=== PATIENT | male | born 1980 | race Caucasian/White ===

== ENCOUNTER 2025-02-10 13:00 | Emergency (ER) | payer OTHER, SELFPAY ==
[2025-02-10 13:10] VITALS: BP 160/90; PULSE 71; RESP 18; TEMP 36.6; O2SAT 98
[2025-02-10 13:57] VITALS: BP 149/93; PULSE 54; RESP 14; TEMP 36.6; O2SAT 99
[2025-02-10 14:06] LABS: Bilirubin Negative (Negative); Blood Negative (Negative); Clarity Clear (Clear); Glucose Negative (Negative); Ketones Negative (Negative); Leukocyte Esterase Negative (Negative); Nitrite Negative (Negative); pH 6.5 (5-8)
--- NOTE | 2025-02-10 14:17 | ED.GENADUL_ITS ---
Discharge Plan Disposition Patient Disposition: Home Condition: Stable Discharge Details Clinical Impression: Left flank pain ED Provider: Alxy Pearl Home Meds and New Rx's Prescriptions: No Action amlodipine 10 mg tablet 10 mg PO DAILY Discharge Instructions Instructions: Flank Pain (DC) Additional Instructions: You were seen in the emergency department today for evaluation of left-sided flank pain. In our department you had a full physical examination performed, and had a urinalysis that did not show any sign of blood which would suggest kidney stones, nor urinary tract infection. Your vital signs were reassuring and at this time it is safe for you to go home and manage her symptoms conservatively. Please use therapeutic dosing of Tylenol (acetaminophen) & Advil (ibuprofen) as needed in an alternating fashion as follows: Take 1000mg of Tylenol every 6 hours without missing doses- that is 4 times per day. Retirement in between the Tylenol doses, take 600mg of Advil also on a 6 hour schedule, that is also 4 times per day. With this strategy, you will be taking something for fever/pain as often as every 3 hours. The daily maximum dosing of Tylenol is 4000mg, and the daily maximum dosing of Advil is 2400mg. Please note that some common cold medications & prescription pain medications may contain acetaminophen and you need to read OTC drug labels and factor that in to maximum daily doses. Please maintain good hydration. We have referred you to establish with a primary care provider, please follow-up on this visit to discuss any symptoms that change, worsen, or persist. Thank you for allowing us to be part of your care. HPI General Mode of arrival: ambulatory . Date/Time Provider Initiated Documentation: 02/10/25 13:16 . Limitations to Documentation: no limitations . Information obtained by: patient and old records reviewed . HPI Narrative: HISTORY OF PRESENT ILLNESS The patient presents to the emergency department for evaluation of left flank pain. He has been experiencing left flank pain, initially perceived as back pain, for the last few days. The pain intensified over the past two nights, characterized by sharp, intermittent episodes that disrupted his sleep. The pain would subside after a few hours, allowing him to return to sleep, but he would awaken with residual soreness. The severity of the pain decreased last night and is less intense today. He reports no associated fevers or chills. He also reports no hematuria, nausea, or vomiting. He has not taken any [id number] analgesics such as Tylenol or ibuprofen. He reports no history of abdominal surgery. He has not experienced any testicular or groin pain. He has not had any recent injuries or strenuous activities that could have precipitated the pain. He has not had any recent injuries or strenuous activities that could have precipitated the pain. He attempted to alleviate the pain through increased water intake due to concerns of dehydration. He notes a change in his urine color to a darker shade, which improved with hydration. He is otherwise healthy. He does not have a primary care physician. He has a family member with a history of renal stones, which prompted him to seek care today. Denies dysuria or hematuria, testicular pain. Supplemental Information He takes amlodipine 10 mg daily for blood pressure management. Related Data Home Medications ?Medication ?Instructions ?Recorded ?Confirmed amlodipine 10 mg tablet 10 mg PO DAILY 02/10/25 02/10/25 Allergies Allergy/AdvReac Type Severity Reaction Status Date / Time No Known Allergies Allergy Unverified 02/10/25 13:12 General Stated Complaint: FlankPain JANELL: 3 Exam Narrative Exam Narrative: Gen: Awake and alert, in no apparent distress HEENT: Non-icteric sclera Neck: Supple Lungs: No apparent respiratory distress, normal respiratory effort. Lung sounds clear and equal bilaterally CV: Appears well perfused, heart with regular rate and rhythm, no murmurs auscultated Abdomen: Non-distended, soft, nontender to palpation without rigidity, rebound, or guarding. No midline masses or pulsatile findings. Left flank is tender to palpation, no overlying skin changes MSK: Moves 4 extremities without apparent limitation in ROM Skin: Visualized skin without rashes, cyanosis. Neuro: Normal Gait, no obvious focal deficits or facial asymmetry. Speaks in full, clear sentences. Psych: Appropriate for situation. Course Vital Signs Vital signs: Vital Signs Temperature 36.6 C 02/10/25 13:10 Pulse 71 02/10/25 13:10 Respiratory Rate 18 02/10/25 13:10 Blood Pressure 160/90 H 02/10/25 13:10 Pulse Oximetry 98 02/10/25 13:10 Temperature 36.6 C 02/10/25 13:57 Temperature Source Oral 02/10/25 13:57 Pulse 54 L 02/10/25 13:57 Respiratory Rate 14 02/10/25 13:57 Blood Pressure 149/93 H 02/10/25 13:57 Blood Pressure Position Sitting 02/10/25 13:10 Pulse Oximetry 99 02/10/25 13:57 Oxygen Delivery Method Room Air 02/10/25 13:57 Oxygen Flow Rate 0 02/10/25 13:10 Pain Level 5 02/10/25 13:55 Lab/Test Results Lab/Test Results: Laboratory Tests Range/Units 02/10/25 13:43 Urine Color (Yellow) Yellow Urine Clarity (Clear) Clear Urine pH (5-8) 6.5 Ur Specific [place] (1.005-1.025) 1.020 Urine Protein (Neg-Trace) mg/dL Trace Urine Ketones (Negative) mg/dL Negative Urine Blood (Negative) Negative Urine Nitrite (Negative) Negative Urine Bilirubin (Negative) Negative Urine Urobilinogen (Up to 0.2) mg/dL 4.0 H Ur Leukocyte Esterase (Negative) Negative Urine Glucose (Negative) mg/dL Negative Medical Decision Making This is a 44-year-old male patient presenting for evaluation of left flank pain. Differential includes but is not limited to kidney stone, musculoskeletal strain no evidence on physical examination for herpes zoster, patient is lower risk for intra-abdominal pathology such as aortic aneurysm, given his young age and lack of smoking history. He is tolerating oral intake and I have a low concern for metabolic or electrolyte derangement, kidney injury. No testicular pain or penile discharge reported to suggest testicular torsion, epididymitis, orchitis. We will obtain a urinalysis. At this time the patient's symptoms are well- managed and he is not requiring any medications for pain. ED Course: - Urinalysis performed; results negative for hematuria and infection. - Muscular etiology considered more likely given patient's age and active lifestyle. - Advised to maintain adequate hydration. - Recommended use of [id number] analgesics such as Tylenol or ibuprofen for pain management. - Referral to a primary care physician to be arranged for further evaluation. Final Assessment: Urinalysis results are reassuring against renal calculus. Muscular etiology is considered more likely. Patient advised on hydration and analgesics, with a referral for further evaluation if no improvement. Clinical Impression: - Left flank pain Disposition: - Follow-Up: Referral to a primary care physician for further evaluation. MDM Components Evaluation: - Number of Differential Diagnoses or Management Options: Muscular etiology, renal calculus - Amount and Complexity of Data Reviewed: Urinalysis results - Risk of Complication and Morbidity or Mortality: Low risk given negative urinalysis and muscular etiology considered more likely. Alyx Pearl MD Patient consented to the use of [facility] for this patient encounter. Quality:SDOH Health Related Social Needs: No Data to Display PFSH All Active Problems (Updated 02/10/25 @ 14:19 by Alyx Pearl MD) Left flank pain (Acute) Social History Smoking/Tobacco Use Status: Never Smoking risk assessment performed?: Yes Alcohol Intake: current Alcohol Intake frequency: a few times a month Substance use type: does not use Housing: house
== END 2025-02-10 14:43 | disposition home or self-care (01) ==
LOC: ER 14:37
PROVIDERS: Emergency Provider Emergency Medicine
DX: R10.32 Left lower quadrant pain (principal)
CPT/HCPCS: 99283; 99282; 81003